=== PATIENT | male | born 1955 | race Caucasian/White ===

== ENCOUNTER → 2019-04-12 09:28 | Outpatient (CLI) | payer OTHER, SELFPAY ==
[2019-03-28 14:06] VITALS: BMI 21.1
--- NOTE | 2019-04-12 09:34 | STE_ITS ---
Reason For Study: CAD Stress Results Protocol: Alek Protocol Maximum Predicted HR: 159 bpm Target HR: 135 bpm % Maximum Predicted HR: 84 % DurationHeart Rate Stage (mm:ss) (bpm) BP Comment Baseline 59 112/68No Chest Pain Alek Protocol Stage I 3:00 85 118/62No Chest Pain Alek Protocol Stage II 3:00 99 130/62No Chest Pain Alek Protocol Stage III 3:00 120 134/62No Chest Pain Alek Protocol Stage IV 1:00 134 / No Chest Pain Recovery 81 108/64No Chest Pain Stress Duration: 10:00 mm:ss Maximum Stress HR: 134 bpm METS: 13 Baseline Echocardiogram Findings The estimated ejection fraction is 65 %. Stress Echo Wall motion Data Resting WM Intermediate WM Stress WM Resting Wall Motion No regional wall motion abnormalities noted. EKG Data The baseline ECG displays normal sinus rhythm. About 1.5mm upsloping ST depression noted in the inferior and lateral leads. Symptoms with Stress no chest pain. Interpretation Summary The estimated ejection fraction is 65 %. Stress echo is -ve for exercise induced CP,or EKG or Echocardiographic changes of ischemia. Stress echo is -ve for exercise induced CP,or EKG or Echocardiographic changes of ischemia. Ordering Physician: Marline Sánchez Referring Physician: Marline Sánchez Performed By: Do Vyas, RDCS
== END ==
PROVIDERS: Referring Provider Specialist; Visit Provider Specialist
DX: I25.10 Atherosclerotic heart disease of native coronary artery without angina pectoris (principal)
CPT/HCPCS: 93017; 93350

== ENCOUNTER → 2021-04-07 09:42 | Outpatient (CLI) | payer BC, SELFPAY ==
--- NOTE | 2021-04-07 09:50 | STE_ITS ---
Reason For Study: CAD Stress Results Protocol: Alek Protocol Maximum Predicted HR: 157 bpm Target HR: 133 bpm % Maximum Predicted HR: 92 % DurationHeart Rate Stage (mm:ss) (bpm) BP Comment Baseline 65 118/78No Chest Pain Alek Protocol Stage I 3:00 121 122/72No Chest Pain Alek Protocol Stage II 3:00 134 134/70No Chest Pain Alek Protocol Stage III 3:00 144 140/68No Chest Pain; Mild Dyspnea Recovery 87 116/78No Chest Pain Stress Duration: 9:00 mm:ss Maximum Stress HR: 144 bpm METS: 10 Baseline Echocardiogram Findings The estimated ejection fraction is 65 %. Stress Echo Wall motion Data Resting WM Intermediate WM Stress WM Resting Wall Motion Wall Motion Stress No regional wall motion No regional wall motion abnormalities noted. abnormalities noted. EKG Data The baseline ECG displays normal sinus rhythm. Sinus tachycardia with upsloping ST depressions in the inferior and lateral leads at peak exercise that comes back to baseline in recovery period. No definite ischemic EKG changes. Symptoms with Stress The patient experinced No chest pain . ECHO/Stress Test Echo w/o Contrast Interpretation Summary The estimated ejection fraction is 65 %. Exercise echo is negative for exercise-induced chest pain or EKG or echocardiog raphic changes of ischemia. Functional capacity is excellent for age. Ordering Physician: Marline Sánchez Referring Physician: Marline Sánchez Performed By: Monse Carter, OXANA
== END ==
PROVIDERS: Referring Provider Specialist; Visit Provider Specialist
DX: I25.10 Atherosclerotic heart disease of native coronary artery without angina pectoris (principal); I10 Essential (primary) hypertension; E78.5 Hyperlipidemia, unspecified; Z95.5 Presence of coronary angioplasty implant and graft
CPT/HCPCS: 93017; 93350

== ENCOUNTER → 2022-03-17 | Outpatient (CLI) | payer OTHER, SELFPAY ==
--- NOTE | 2022-03-17 09:46 | STE_ITS ---
Reason For Study: CAD/ASHD Stress Results Protocol: Alek Protocol Maximum Predicted HR: 156 bpm Target HR: 133 bpm % Maximum Predicted HR: 99 % DurationHeart Rate Stage (mm:ss) (bpm) BP Comment BASELINE 67 122/74 STAGE 1 3:00 105 130/64 STAGE 2 3:00 126 148/72 STAGE 3 3:00 142 160/70 STAGE 4 2:31 155 164/78SOB, NO CHEST PAIN RECOVERY 93 128/80 Stress Duration: 11:31 mm:ss Maximum Stress HR: 155 bpm Baseline Echocardiogram Findings The estimated ejection fraction is 70 %. Post stress EF is >75%. Stress Echo Wall motion Data Resting WM Intermediate WM Stress WM Resting Wall Motion Wall Motion Stress No regional wall motion No regional wall motion abnormalities noted. abnormalities noted. EKG Data The baseline ECG displays normal sinus rhythm. Upsloping ST depression in the inferior and lateral leads similar to those noted in prior stress test in 04/09. No definite ischemic changes. ST changes retun to baseline in the recovery period. Symptoms with Stress The patient experinced no chest pain . ECHO/Stress Test Echo w/o Contrast Interpretation Summary The estimated ejection fraction is 70 %. Stress echo is negative for exercise induced EKG changes of ischemia or chest p ain or echocardiographic changes of ischemia. Functional capacity is excellent for age Ordering Physician: Mattie Sánchez Referring Physician: Mattie Sánchez Performed By: Anju Josue, RDCS, RVT
== END | disposition home or self-care (01) ==
PROVIDERS: Referring Provider Specialist; Visit Provider Specialist
DX: I25.10 Atherosclerotic heart disease of native coronary artery without angina pectoris (principal); I10 Essential (primary) hypertension; Z95.5 Presence of coronary angioplasty implant and graft
CPT/HCPCS: 93017; 93350